=== PATIENT | female | born 1985 | race Caucasian/White ===

== ENCOUNTER → 2016-10-22 | Outpatient (CLI) | payer BC ==
[~2016-10-22] MED LIST: CYCL-36 PO; IBUP800 PO
== END ==
LOC: HPND 09:49
PROVIDERS: ATTEND Obstetrics & Gynecology
DX: O34.219 Maternal care for unspecified type scar from previous cesarean delivery (principal); Z3A.12 12 weeks gestation of pregnancy
CPT/HCPCS: 36415; 76813